=== PATIENT | female | born 1945 | race Caucasian/White ===

== ENCOUNTER 2018-11-23 16:52 | Emergency (ER) | payer OTHER ==
--- OUTSIDE RECORDS SUMMARY | 2018-11-23 16:54 | XMS REPORT ---
:1945 [facility] Address [address] [place] [address] Dr. Williamson [address] [place] [id number] Care Team Providers Name Role Phone Unavailable Unavailable Unavailable Payers Payer Name Policy Type Policy Number Effective Date Expiration Date Problems This patient has no known problems. Allergies, Adverse Reactions, Alerts This patient has no known allergies or adverse reactions. Medications This patient has no known medications.
--- OUTSIDE RECORDS SUMMARY | 2018-11-23 16:54 | XMS REPORT | Clinical Summary ---
:1945 Author Organization [facility] Address [address] [place] [address] Care Team Providers Name Role Phone Rasheed Morgan MD Primary Care Provider Allergies Active Allergy Reactions Severity Noted Date Comments Amoxicillin-Pot Clavulanate 06/26/2016 Medications Medication Sig Dispensed Refills Start Date End Date Status colestipol (COLESTID) 1 0 05/06/2016 Active gram tablet losartan-hydrochlorothi 0 05/06/2016 Active azide (HYZAAR) 50-12.5 mg per tablet PREMARIN 0.625 mg/gram 0 05/08/2016 Active vaginal cream nitrofurantoin, 0 05/08/2016 Active macrocrystal-monohydrat e, (MACROBID) 100 MG capsule SUMAtriptan (IMITREX) Take 50 mg by 0 Active 50 MG tablet mouth once as needed for migraine. May repeat in 2 hours if unresolved. Do not exceed 200 mg in 24 hours. cetirizine (ZyrTEC) 10 Take 10 mg by 0 Active mg capsule mouth daily. multivitamin Take 1 tablet by 0 Active (THERAGRAN) tablet mouth daily. omega-3 fatty Take 1,400 mg by 0 Active acids-vitamin E (FISH mouth daily. OIL) 1,000 mg capsule PSYLLIUM HUSK/ASPARTAME Take by mouth. 0 Active (METAMUCIL MULTIHEALTH FIBER ORAL) BIOTIN ORAL Take 5,000 mcg by 0 Active mouth daily. Active Problems Problem Noted Date Dilated bile duct 06/26/2016 RUQ abdominal pain 06/26/2016 Family History Medical History Relation Name Comments Heart disease Father Breast cancer Sister Jimenez Relation Name Status Comments Father Mother Alive Sister Jimenez Alive Social History Tobacco Use Types Packs/Day Years Used Date Never Smoker Smokeless Tobacco: Never Used Alcohol Use Drinks/Week oz/Week Comments Yes 3 Glasses of wine 1.8 social Sex Assigned at Date Recorded Not on file Job Start Date Occupation Industry Not on file Not on file Not on file Travel History Travel Start Travel End No recent travel history available. Last Filed Vital Signs Not on file Plan of Treatment Health Maintenance Due Date Last Done Comments BREAST CANCER SCREENING 12/18/1997 COLONOSCOPY SCREENING 12/18/1997 SHINGLES VACCINES (#1) 12/18/1997 65+ PNEUMOCOCCAL VACCINE (1 of 2 - PCV13) 12/18/2012 INFLUENZA VACCINE 12/31/2018 Results Not on fileafter 11/22/2017 Insurance Payer Benefit Plan / Subscriber ID Effective Dates Phone Address Type Group HUMANA MEDICARE HUMANA MEDICARE xxxxxxxxx 2016-Present PPO PPO/PFFS/ERS [facility] ([place]) [place] [address] Advance Directives Patient has advance care planning documents on file. For more information, please contact:Dakota Lind[address] [place] [address]
[2018-11-23] MEDS ORDERED: TETANUS & DIPHTHERIA TOX,ADULT 0.5 ML VIAL ONE (17:41)
[2018-11-23] MEDS ORDERED: BUPIVACAINE 0.5% PF 10 ML VIAL ONE (17:42)
[2018-11-23] MEDS ORDERED: LIDOCAINE 1% MPF 5 ML VIAL ONE (17:42)
--- NOTE | 2018-11-23 18:10 | RAD REPORT ---
EXAM DESCRIPTION: RAD - Hand Left 2 View - 11/23/2018 5:39 pm CLINICAL HISTORY: Soft tissue wound left index finger COMPARISON: None. FINDINGS: No fracture is identified. There is no dislocation or periosteal reaction noted. No foreig n body in the soft tissues. Degenerative changes are present at the DIP joints and minimally at the PIP joints. MCP joints are spared. IMPRESSION: Degenerative change with no acute bone finding. No foreign body in the soft tissues.
--- NOTE | 2018-11-23 18:38 | EDPHYS ---
Physician Documentation [facility] Name: Iesha Sims Age: 72 yrs Sex: Female : 1945 Arrival Date: 11/23/2018 Time: 16:53 Bed 10 Private MD: Rasheed Morgan V ED Physician Felipe Hall HPI: 11/23 17:23 This 72 yrs old Female presents to ER via Ambulatory with complaints of snw Finger Injury. 17:23 The patient or guardian reports a laceration, irregular, complex, ragged. The snw complaints affect the DIP of left index finger. Context: The problem was sustained at home, resulted from stuck hand in immersion snuff blender. Onset: The symptoms/episode began/occurred suddenly, just prior to arrival. Associated signs and symptoms: Pertinent positives: tingling distally. Severity of symptoms: At their worst the symptoms were mild. The patient has not experienced similar symptoms in the past. It is unknown whether or not the patient has recently seen a physician. on unknown abx for UTI. Historical: - Allergies: 16:59 Augmentin; hj - PMHx: 16:59 Hypertension; hj - PSHx: 16:59 Tonsillectomy; Cholecystectomy; Hysterectomy; hj - Immunization history:: Last tetanus immunization: > 10 years ago. - Social history:: Smoking status: Patient/guardian denies using tobacco. - Ebola Screening: : Patient denies exposure to infectious person Patient denies travel to an Ebola-affected area in the 21 days before illness onset. ROS: 17:22 Constitutional: Negative for fever, chills, and weight loss, Eyes: Negative for injury, snw pain, redness, and discharge, ENT: Negative for injury, pain, and discharge, Neck: Negative for injury, pain, and swelling, Cardiovascular: Negative for chest pain, palpitations, and edema, Respiratory: Negative for shortness of breath, cough, wheezing, and pleuritic chest pain, Abdomen/GI: Negative for abdominal pain, nausea, vomiting, diarrhea, and constipation, Back: Negative for injury and pain, : Negative for injury, bleeding, discharge, and swelling, MS/Extremity: Negative for injury and deformity, Neuro: Negative for headache, weakness, numbness, tingling, and seizure, Psych: Negative for depression, anxiety, suicide ideation, homicidal ideation, and hallucinations. 17:22 Skin: Positive for laceration(s), of the left hand - index fingertip. Exam: 17:15 Constitutional: This is a well developed, well nourished patient who is awake, alert, snw and in no acute distress. Head/Face: Normocephalic, atraumatic. Eyes: Pupils equal round and reactive to light, extra-ocular motions intact. Lids and lashes normal. Conjunctiva and sclera are non-icteric and not injected. Cornea within normal limits. Periorbital areas with no swelling, redness, or edema. ENT: Nares patent. No nasal discharge, no septal abnormalities noted. Tympanic membranes are normal and external auditory canals are clear. Oropharynx with no redness, swelling, or masses, exudates, or evidence of obstruction, uvula midline. Mucous membranes moist. Neck: Trachea midline, no thyromegaly or masses palpated, and no cervical lymphadenopathy. Supple, full range of motion without nuchal rigidity, or vertebral point tenderness. No Meningismus. Chest/axilla: Normal chest wall appearance and motion. Nontender with no deformity. No lesions are appreciated. Cardiovascular: Regular rate and rhythm with a normal S1 and S2. No gallops, murmurs, or rubs. Normal PMI, no JVD. No pulse deficits. Respiratory: Lungs have equal breath sounds bilaterally, clear to auscultation and percussion. No rales, rhonchi or wheezes noted. No increased work of breathing, no retractions or nasal flaring. Abdomen/GI: Soft, non-tender, with normal bowel sounds. No distension or tympany. No guarding or rebound. No evidence of tenderness throughout. Back: No spinal tenderness. No costovertebral tenderness. Full range of motion. MS/ Extremity: Pulses equal, no cyanosis. Neurovascular intact. Full, normal range of motion. Neuro: Awake and alert, GCS 15, oriented to person, place, time, and situation. Cranial nerves II-XII grossly intact. Motor strength 5/5 in all extremities. Sensory grossly intact. Cerebellar exam normal. Normal gait. Psych: Awake, alert, with orientation to person, place and time. Behavior, mood, and affect are within normal limits. 17:15 Skin: Appearance: normal except for affected area, injury, laceration(s), the wound is approximately 2 cm(s), with a depth of 1 cm(s), of the dorsal aspect of distal phalanx of left index finger. Vital Signs: 16:59 BP 177 / 82; Pulse 86; Resp 18; Temp 97.8(O); Pulse Ox 100% on R/A; Weight 58.97 kg; hj Height 5 ft. 4 in. (162.56 cm); Pain 4/10; 16:59 Body Mass Index 22.31 (58.97 kg, 162.56 cm) hj Procedures: 17:36 Nerve block: (digital) of dorsal aspect of proximal phalanx of left index finger and kb palmar aspect of proximal phalanx of left index finger Medication: Lidocaine 1% without epinephrine Marcaine 0.5%, Amount: 6 mls were injected, Effect: the patient has resolution of the pain, Set up for procedure. Performed by Jenny PARTIDA Patient tolerated well. Laceration: 18:23 Wound Repair of 2cm ( 0.8in ) subcutaneous laceration to dorsal aspect of distal kb phalanx of left index finger and palmar aspect of distal phalanx of left index finger. Irregularly shaped.. Skin/tissue flap noted.. ragged, multiple small laceration, circumferential . Distal neuro/vascular/tendon intact. Anesthesia: Digital block administered with 1% lidocaine. Wound prep: Extensive cleansing with hibiclenz by me, Wound irrigation with saline by me. Skin closed with 19 6-0 Prolene using interrupted sutures and sterile technique. Dressed with Neosporin, tube gauze. Patient tolerated well. MDM: 17:14 Patient medically screened. snw 18:39 Data reviewed: vital signs, nurses notes. Data interpreted: Pulse oximetry: on room air snw is 100 %. Interpretation: normal. Counseling: I had a detailed discussion with the patient and/or guardian regarding: the historical points, exam findings, and any diagnostic results supporting the discharge/admit diagnosis, the presence of at least one elevated blood pressure reading (>120/80) during this emergency department visit, the need for outpatient follow up, to return to the emergency department if symptoms worsen or persist or if there are any questions or concerns that arise at home. Special discussion: I have referred the patient to see his PCP for further evaluation of high blood pressure. Based on the history and exam findings, there is no indication for further emergent testing or inpatient evaluation. I discussed with the patient/guardian the need to see the primary care provider for further evaluation of the symptoms. 11/23 17:13 Order name: Hand Left 2 View XRAY; Complete Time: 18:13 snw 11/23 17:14 Order name: Suture Tray Setup; Complete Time: 17:43 snw Administered Medications: 17:30 Drug: Tetanus-Diphtheria Toxoid Adult 0.5 ml {Senior Asic Design Engineer: [employer]. Exp: ss 07/30/2020. Lot #: [id number]. } Route: IM; Site: right deltoid; 18:47 Follow up: Response: No adverse reaction ss 17:35 Drug: Lidocaine (1 %) 5 mg {Note: administered by jenny Hutchins NP.} Route: Infiltration; ss 17:35 Drug: Hibiclens 4 % 1 application Route: Topical; Site: wound; ss 17:36 Not Given (Other Intervention Used): Marcaine-Epinephrine (0.5 %) 1 amp Infiltration ss once; to bedside 17:36 Drug: Marcaine (0.5 %) 1 amp {Note: administered by Jenny Hutchins NP.} Volume: 10 ml; ss Route: Infiltration; 17:37 Not Given (Other Intervention Used): Marcaine (0.25 %) 1 amp Infiltration once ss Disposition: 11/24 07:04 Co-signature as Attending Physician, Felipe Hall MD. rn Disposition: 11/23/18 18:37 Discharged to Home. Impression: Laceration without foreign body of left index finger with damage to nail. - Condition is Stable. - Discharge Instructions: Contusion, Laceration Care, Adult, Sutured Wound Care. - Prescriptions for Ultram 50 mg Oral Tablet - take 1 tablet by ORAL route every 6 hours As needed; 15 tablet. - Medication Reconciliation Form, Thank You Letter, Antibiotic Education, Prescription Opioid Use form. - Follow up: Rasheed Morgan MD; When: 5 - 6 days; Reason: Recheck today's complaints, Continuance of care, Re-evaluation by your physician. Follow up: Emergency Department; When: 10 - 14 days; Reason: Staple/Suture removal. - Notes: Please continue Ceftin until complete Signatures: Dispatcher [employer] EDMS Jenny Haile, ASSEMBLER CAMPER-C ASSEMBLER CAMPER-Ckb Roberta Gallo, ASSEMBLER CAMPER-C ASSEMBLER CAMPER-Csnw Felipe Hall MD MD rn Smirch, Shelby, RN RN ss Antonio Gould RN RN Corrections: (The following items were deleted from the chart) 11/23 18:47 18:37 11/23/2018 18:37 Discharged to Home. Impression: Laceration without foreign body ss of left index finger with damage to nail. Condition is Stable. Forms are Medication Reconciliation Form, Thank You Letter, Antibiotic Education, Prescription Opioid Use. Follow up: Rasheed Morgan; When: 5 - 6 days; Reason: Recheck today's complaints, Continuance of care, Re-evaluation by your physician. Follow up: Emergency Department; When: 10 - 14 days; Reason: Staple/Suture removal. snw
--- NOTE | 2018-11-23 18:38 | ER ---
Nurse's Notes [facility] Name: Iesha Sims Age: 72 yrs Sex: Female : 1945 Arrival Date: 11/23/2018 Time: 16:53 Bed 10 Private MD: Rasheed Morgan V Diagnosis: Laceration without foreign body of left index finger with damage to nail Presentation: 11/23 16:57 Presenting complaint: Patient states: i have an immersion plunger that i accidentally hj touched and it cut my L index finger and it happened 15 mins ago;. Transition of care: patient was not received from another setting of care. Onset of symptoms was November 23, 2018. Risk Assessment: Do you want to hurt yourself or someone else? Patient reports no desire to harm self or others. Initial Sepsis Screen: Does the patient meet any 2 criteria? No. Patient's initial sepsis screen is negative. Does the patient have a suspected source of infection? No. Patient's initial sepsis screen is negative. Care prior to arrival: None. 16:57 Method Of Arrival: Ambulatory 16:57 Acuity: KAITLYNN 4 hj Historical: - Allergies: 16:59 Augmentin; hj - PMHx: 16:59 Hypertension; hj - PSHx: 16:59 Tonsillectomy; Cholecystectomy; Hysterectomy; hj - Immunization history:: Last tetanus immunization: > 10 years ago. - Social history:: Smoking status: Patient/guardian denies using tobacco. - Ebola Screening: : Patient denies exposure to infectious person Patient denies travel to an Ebola-affected area in the 21 days before illness onset. Screenin:15 Abuse screen: Denies threats or abuse. Denies injuries from another. Nutritional ss screening: No deficits noted. Tuberculosis screening: Never had TB. Fall Risk None identified. Assessment: 17:15 General: Appears in no apparent distress. comfortable, Behavior is calm, cooperative, ss Denies fever, feeling ill, fatigue, chills. Pain: Complains of pain in palmar aspect of proximal phalanx of left index finger and dorsal aspect of proximal phalanx of left index finger and DIP of left index finger and dorsal aspect of distal phalanx of left index finger Pain currently is 4 out of 10 on a pain scale. Quality of pain is described as tender, Is continuous. Neuro: Level of Consciousness is awake, alert, obeys commands, Oriented to person, place, time, situation. Respiratory: Airway is patent Respiratory effort is even, unlabored. Derm: Skin is pink, warm \T\ dry. normal. Musculoskeletal: Circulation, motion, and sensation intact. Range of motion: intact in all extremities, Swelling absent. Injury Description: Laceration sustained to DIP of left index finger was sustained 30-60 minutes ago. a small amount of bleeding noted at this time. Vital Signs: 16:59 BP 177 / 82; Pulse 86; Resp 18; Temp 97.8(O); Pulse Ox 100% on R/A; Weight 58.97 kg; hj Height 5 ft. 4 in. (162.56 cm); Pain 4/10; 16:59 Body Mass Index 22.31 (58.97 kg, 162.56 cm) hj ED Course: 16:53 Patient arrived in ED. mr 16:54 Rasheed Morgan MD is Private Physician. mr 16:58 Triage completed. hj 16:59 Arm band placed on right wrist. hj 17:07 Roberta Gallo FNP-Luis E is [facility]. snw 17:07 Felipe Hall MD is Attending Physician. snw 17:15 Patient has correct armband on for positive identification. Bed in low position. Call ss light in reach. 17:35 Nelia Padilla, SHARMILA is Primary Nurse. ss 17:39 Hand Left 2 View XRAY In Process Unspecified. EDMS 18:36 Rasheed Morgan MD is Referral Physician. snw 18:46 Assist provider with laceration repair on palmar aspect of proximal phalanx of left ss index finger and dorsal aspect of proximal phalanx of left index finger and dorsal aspect of distal phalanx of left index finger that was between 2.6 to 7.5 cm Dressed with Neosporin, tube gauze, non adherent pad. Patient did not have IV access during this emergency room visit. Administered Medications: 17:30 Drug: Tetanus-Diphtheria Toxoid Adult 0.5 ml {Patient Care Nursing Assistant: [employer]. Exp: ss 07/30/2020. Lot #: [id number]. } Route: IM; Site: right deltoid; 18:47 Follow up: Response: No adverse reaction ss 17:35 Drug: Lidocaine (1 %) 5 mg {Note: administered by jenny J, CREDIT CONTROLLER.} Route: Infiltration; ss 17:35 Drug: Hibiclens 4 % 1 application Route: Topical; Site: wound; ss 17:36 Not Given (Other Intervention Used): Marcaine-Epinephrine (0.5 %) 1 amp Infiltration ss once; to bedside 17:36 Drug: Marcaine (0.5 %) 1 amp {Note: administered by Jenny Hutchins NP.} Volume: 10 ml; ss Route: Infiltration; 17:37 Not Given (Other Intervention Used): Marcaine (0.25 %) 1 amp Infiltration once ss Outcome: 18:37 Discharge ordered by . kirby 18:46 Discharged to home ambulatory. ss 18:46 Condition: good 18:46 Discharge instructions given to patient, family, Instructed on discharge instructions, follow up and referral plans. medication usage, wound care, Demonstrated understanding of instructions, follow-up care, medications, wound care, Prescriptions given X 1. 18:47 Patient left the ED. Signatures: Dispatcher [employer] EDMS Roberta Gallo, MIKEC LAMP WIRER-Reena Ansari Shelby, SHARMILA RN Antonio Gould RN RN hj Corrections: (The following items were deleted from the chart) 17:40 16:57 Presenting complaint: Patient states: i have an immersion plunger that i hj accidentally touched and it hurt my L index finger and it happened 15 mins ago; hj
== END 2018-11-23 18:47 | disposition home or self-care (01) ==
LOC: ER 16:52
PROC: 0JQK0ZZ Repair Left Hand Subcutaneous Tissue and Fascia, Open Approach (ICD-10-PCS; principal; 2018-11-23)
DX: S61.311A Laceration without foreign body of left index finger with damage to nail, initial encounter (principal); W45.8XXA Other foreign body or object entering through skin, initial encounter; Y93.89 Activity, other specified; Y92.000 Kitchen of unspecified non-institutional (private) residence as the place of occurrence of the external cause; Z23 Encounter for immunization; Z88.1 Allergy status to other antibiotic agents; I10 Essential (primary) hypertension
CPT/HCPCS: 64450; 90471; 90714; 99284

== ENCOUNTER 2018-12-04 08:58 | Emergency (ER) | payer OTHER ==
--- OUTSIDE RECORDS SUMMARY | 2018-12-04 09:01 | XMS REPORT | Clinical Summary ---
:1945 Author Organization [facility] Address [address] [place] [address] Care Team Providers Name Role Phone Rasheed [...] INFLUENZA VACCINE 12/31/2018 Results Not on fileafter 12/03/2017 Insurance Payer Benefit Plan / Subscriber ID Effective Dates Phone Address Type Group HUMANA MEDICARE HUMANA MEDICARE xxxxxxxxx 2016-Present PPO PPO/PFFS/ERS [facility] ([place]) [place] [address] Advance Directives Patient has advance care planning documents on file. For more information, please contact:Dakota Lind[address] [place] [address]
--- OUTSIDE RECORDS SUMMARY | 2018-12-04 09:02 | XMS REPORT ---
:1945 [facility] Address [address] [place] [address] Dr. Victoria[address] [place] [address] Care Team Providers Name Role Phone Unavailable Unavailable Unavailable Payers Payer Name Policy Type Policy Number Effective Date Expiration Date Problems This patient has no known problems. Allergies, Adverse Reactions, Alerts This patient has no known allergies or adverse reactions. Medications This patient has no known medications.
--- NOTE | 2018-12-04 09:26 | EDPHYS ---
Physician Documentation [facility] Name: Iesha Sims Age: 72 yrs Sex: Female : 1945 Arrival Date: 12/04/2018 Time: 09:02 Bed 15 Private MD: Rasheed Morgan V ED Physician Navarro Tate HPI: 12/04 09:23 This 72 yrs old Female presents to ER via Ambulatory with complaints of kb Suture Removal. 09:23 The patient has sutures on the palmar aspect of distal phalanx of left index finger. kb Previous treatment: The patient was initially treated on November 23, 2018, the care was rendered at [facility], Treatment type: The patient's original treatment included sutures. Sutures/vernon progress: The patient has no c/o's. The wound is well-healing with no redness, swelling, discharge, or dehiscence reported. The patient has not experienced similar symptoms in the past. The patient has not recently seen a physician. Historical: - Allergies: 09:17 Augmentin; ls4 - PMHx: 09:17 Hypertension; ls4 - Immunization history:: Last tetanus immunization: up to date. - Social history:: Smoking status: Patient/guardian denies using tobacco. - Ebola Screening: : Patient negative for fever greater than or equal to 101.5 degrees Fahrenheit, and additional compatible Ebola Virus Disease symptoms Patient denies exposure to infectious person Patient denies travel to an Ebola-affected area in the 21 days before illness onset No symptoms or risks identified at this time. ROS: 09:25 Constitutional: Negative for fever, chills, and weight loss, Cardiovascular: Negative kb for chest pain, palpitations, and edema, Respiratory: Negative for shortness of breath, cough, wheezing, and pleuritic chest pain, Abdomen/GI: Negative for abdominal pain, nausea, vomiting, diarrhea, and constipation, MS/Extremity: Negative for injury and deformity, Neuro: Negative for headache, weakness, numbness, tingling, and seizure. 09:25 Skin: Positive for of the palmar aspect of distal phalanx of left index finger, sutures in place. Exam: 09:25 Constitutional: This is a well developed, well nourished patient who is awake, alert, kb and in no acute distress. Head/Face: Normocephalic, atraumatic. Chest/axilla: Normal chest wall appearance and motion. Nontender with no deformity. No lesions are appreciated. Cardiovascular: Regular rate and rhythm with a normal S1 and S2. No gallops, murmurs, or rubs. Normal PMI, no JVD. No pulse deficits. Respiratory: Lungs have equal breath sounds bilaterally, clear to auscultation and percussion. No rales, rhonchi or wheezes noted. No increased work of breathing, no retractions or nasal flaring. Abdomen/GI: Soft, non-tender, with normal bowel sounds. No distension or tympany. No guarding or rebound. No evidence of tenderness throughout. MS/ Extremity: Pulses equal, no cyanosis. Neurovascular intact. Full, normal range of motion. Neuro: Awake and alert, GCS 15, oriented to person, place, time, and situation. Cranial nerves II-XII grossly intact. Motor strength 5/5 in all extremities. Sensory grossly intact. Cerebellar exam normal. Normal gait. 09:25 Skin: Wound recheck: Suture laceration closure: the wound is healing well, the edges are well approximated, no evidence of dehiscence, no drainage, no erythema, no swelling. Vital Signs: 09:27 BP 156 / 76; Pulse 67; Resp 18; Temp 98.6(O); Pulse Ox 99% ; jb1 Procedures: 09:25 Suture/Staple removal: Removed 19 sutures, from palmar aspect of distal phalanx of left kb index finger, site appears well healed, dressed with Neosporin, Patient tolerated well. MDM: 09:13 Patient medically screened. kb 09:24 Data reviewed: vital signs, nurses notes. Data interpreted: Pulse oximetry: on room air kb is 100 %. Interpretation: normal. Counseling: I had a detailed discussion with the patient and/or guardian regarding: the historical points, exam findings, and any diagnostic results supporting the discharge/admit diagnosis, the need for outpatient follow up, a family practitioner, to return to the emergency department if symptoms worsen or persist or if there are any questions or concerns that arise at home. Administered Medications: No medications were administered Disposition: 12/04/18 09:26 Discharged to Home. Impression: Encounter for removal of sutures. - Condition is Stable. - Discharge Instructions: Suture Removal, Care After. - Medication Reconciliation Form, Thank You Letter, Antibiotic Education, Prescription Opioid Use form. - Follow up: Emergency Department; When: As needed; Reason: Worsening of condition. Follow up: Private Physician; When: 2 - 3 days; Reason: Recheck today's complaints, Continuance of care, Re-evaluation by your physician. Addendum: 12/09/2018 16:48 Co-signature as Attending Physician, Navarro Tate MD I agree with the assessment and c sandoval plan of care. Signatures: Jenny Haile, KATIE-C KATIE-Navarro Stack MD MD cha Botello, Elizabeth eb Stewart, Lisa, RN RN ls4 Corrections: (The following items were deleted from the chart) 12/04 09:32 09:26 12/04/2018 09:26 Discharged to Home. Impression: Encounter for removal of eb sutures. Condition is Stable. Forms are Medication Reconciliation Form, Thank You Letter, Antibiotic Education, Prescription Opioid Use. Follow up: Emergency Department; When: As needed; Reason: Worsening of condition. Follow up: Private Physician; When: 2 - 3 days; Reason: Recheck today's complaints, Continuance of care, Re-evaluation by your physician. kb
--- NOTE | 2018-12-04 09:26 | ER ---
Nurse's Notes [facility] Name: Iesha Sims Age: 72 yrs Sex: Female : 1945 Arrival Date: 12/04/2018 Time: 09:02 Bed 15 Private MD: Rasheed Morgan V Diagnosis: Encounter for removal of sutures Presentation: 12/04 09:16 Presenting complaint: Patient states: suture removal. Transition of care: patient was ls4 not received from another setting of care. Onset of symptoms is unknown. Risk Assessment: Do you want to hurt yourself or someone else? Patient reports no desire to harm self or others. Initial Sepsis Screen: Does the patient meet any 2 criteria? No. Patient's initial sepsis screen is negative. Does the patient have a suspected source of infection? No. Patient's initial sepsis screen is negative. Care prior to arrival: None. 09:16 Method Of Arrival: Ambulatory ls4 09:16 Acuity: KAITLYNN 4 ls4 Triage Assessment: 09:17 General: Appears in no apparent distress. Behavior is calm, cooperative. Pain: Denies ls4 pain. Historical: - Allergies: 09:17 Augmentin; ls4 - PMHx: 09:17 Hypertension; ls4 - Immunization history:: Last tetanus immunization: up to date. - Social history:: Smoking status: Patient/guardian denies using tobacco. - Ebola Screening: : Patient negative for fever greater than or equal to 101.5 degrees Fahrenheit, and additional compatible Ebola Virus Disease symptoms Patient denies exposure to infectious person Patient denies travel to an Ebola-affected area in the 21 days before illness onset No symptoms or risks identified at this time. Screenin:18 Abuse screen: Denies threats or abuse. Denies injuries from another. Nutritional ls4 screening: No deficits noted. Tuberculosis screening: No symptoms or risk factors identified. Fall Risk None identified. Assessment: 09:17 General: Appears in no apparent distress. Neuro: No deficits noted. Cardiovascular: No ls4 deficits noted. Respiratory: No deficits noted. Vital Signs: 09:27 BP 156 / 76; Pulse 67; Resp 18; Temp 98.6(O); Pulse Ox 99% ; jb1 ED Course: 09:02 Patient arrived in ED. mr 09:02 Rasheed Morgan MD is Private Physician. mr 09:13 Jenny Haile FNP-C is [facility]. kb 09:13 Navarro Tate MD is Attending Physician. kb 09:15 Radha Bhatia, RN is Primary Nurse. ls4 09:16 Triage completed. ls4 09:17 Arm band placed on. ls4 09:18 Patient has correct armband on for positive identification. Bed in low position. Call ls4 light in reach. Side rails up X 1. Verbal reassurance given. 09:27 No provider procedures requiring assistance completed. Patient did not have IV access ls4 during this emergency room visit. Administered Medications: No medications were administered Outcome: 09:26 Discharge ordered by MD. kb 09:28 Discharged to home ambulatory, with family. ls4 09:28 Condition: good 09:28 Discharge instructions given to patient, family, Instructed on discharge instructions, follow up and referral plans. medication usage, safety practices, Demonstrated understanding of instructions, follow-up care, medications, wound care. 09:32 Patient left the ED. eb Signatures: Leroy Rader jb1 Jenny Haile FNP-C FNP-Reena Hamilton mr LlamasShruthi Radha Bhatia, RN RN ls4
== END 2018-12-04 09:32 | disposition home or self-care (01) ==
LOC: ER 08:58
DX: Z48.02 Encounter for removal of sutures (principal)
CPT/HCPCS: 99281